=== PATIENT | female | born 1965 | race American Indian/Alaskan Native ===

== ENCOUNTER 2019-07-31 16:43 | Emergency (ER) | payer BC, OTHER ==
[~2019-07-31] VITALS: Ht 160 cm; Wt 81.7 kg
[2019-07-31 16:58] LABS: ABSOLUTE NEUTROPHILS 2.8 thou/uL (1.4-8.2); EOSINOPHILS 1.9 % (0.0-3.0); HEMATOCRIT 30.1 % (37.0-47.0); HEMOGLOBIN 9.2 gm/dL (12.0-15.0); LYMPHOCYTES 39.3 % (24.0-44.0); MCH 22.1 pg (26.0-34.0); MCHC 30.7 g/dL (28.0-37.0); MCV 72.2 fL (80.0-100.0); MONOCYTES 8.7 % (1.0-8.0); PLATELET COUNT 352 thou/uL (150-400); POLYS 49.1 % (36.0-66.0); RBC 4.16 mil/uL (4.20-5.00); RDW 20.4 % (10.5-14.5); WBC 5.7 thou/uL (4.0-11.0)
[2019-07-31 17:06] LABS: CALCIUM 8.7 mg/dL (8.5-10.1); POTASSIUM 3.4 mmol/L (3.5-5.1)
[2019-07-31 17:06] LABS: URINE BILIRUBIN NEGATIVE (Negative); URINE BLOOD NEGATIVE (Negative); URINE CLARITY CLEAR; URINE COLOR ORANGE; URINE GLUCOSE-RANDOM* TRACE (Negative); URINE KETONES NEGATIVE (Negative); URINE LEUKOCYTES-REFLEX TRACE (Negative); URINE PROTEIN (DIPSTICK) 1+ (Negative)
[2019-07-31 17:08] LABS: URINE NITRITE-REFLEX POSITIVE (Negative)
[2019-07-31 17:12] LABS: ALBUMIN 3.7 g/dL (3.4-5.0); TOTAL BILIRUBIN 0.6 mg/dL (<0.1-1.0); TOTAL PROTEIN 7.8 g/dL (6.4-8.2)
[2019-07-31 17:57] LABS: SQUAMOUS 4-10 Moderate /LPF (0-3)
[2019-07-31 17:58] LABS: CASTS None Seen /LPF (None Seen); CRYSTALS None Seen /LPF (None Seen); URINE WBC-REFLEX 0-5 Rare /HPF (0-5)
[2019-07-31 17:59] LABS: BACTERIA-REFLEX 1-9 Few /HPF (None Seen); URINE RBC None Seen /HPF (0-2)
[2019-07-31] MEDS ORDERED: KEFLEX500 M1 PO (18:16)
[2019-07-31] MEDS ORDERED: ONDANSETRON HCL4 M2 PO (18:17)
[2019-07-31] MEDS ORDERED: IBU600 MG PO (18:17)
[2019-07-31 18:57] LABS: ANISOCYTOSIS 2+; POLYCHROMASIA OCCASIONAL
[2019-07-31 18:58] LABS: HYPOCHROMASIA 2+; MICROCYTES 1+
[2019-07-31 19:34] VITALS: BP 143/73
== END 2019-07-31 19:36 | disposition home or self-care (01) ==
LOC: ER 16:43
PROVIDERS: Emergency Medicine
DX: N39.0 Urinary tract infection, site not specified (principal); D64.9 Anemia, unspecified; Z88.2 Allergy status to sulfonamides